=== PATIENT | male | born 1960 | race Two or more races ===

== ENCOUNTER 2022-02-25 14:48 | Outpatient (CLI) | payer SELFPAY ==
[2022-02-25 17:25] LABS: Albumin* 4.5 g/dL (3.3-5.0); Chloride* 103 mmol/L (96-114); Potassium* 4.4 mmol/L (3.6-5.1); Sodium* 136 mmol/L (135-149)
[2022-02-25 17:27] LABS: Bilirubin Total* 0.4 mg/dL (0.1-1.5); Carbon Dioxide* 23 mmol/L (20-32); Cholesterol* 217 mg/dL (90-199); Creatinine* 0.7 mg/dL (0.5-1.5); Estimated Glomerular Filt Rate 106 ml/min; Total Protein* 8.1 g/dL (6.0-8.3)
[2022-02-25 17:28] LABS: Alanine Aminotransferase* 24 U/L (4-50); Alkaline Phosphatase* 103 U/L (40-150); Aspartate Amino Transferase* 21 U/L (12-35); Blood Urea Nitrogen* 18 mg/dL (7-30); Calcium* 8.4 mg/dL (8.4-10.6); Glucose* 106 mg/dL (60-115); HDL Cholesterol* 46 mg/dL (>=40)
[2022-02-25 17:40] LABS: LDL Cholesterol Calculated 56 mg/dL (<100); Triglycerides* 577 mg/dL (40-149)
[2022-02-25 17:52] LABS: Creatinine Urine 98.9 mg/dL
[2022-02-25 19:43] LABS: Hemoglobin A1C* 6.79 % (0-5.6)
[2022-02-25 19:51] LABS: Microalbumin Creatinine Ratio 710 mg/g (0-30); Microalbumin Urine 71 mg/dL
== END 2022-02-25 14:49 | disposition home or self-care (01) ==
LOC: LAB 15:01
PROVIDERS: PCP Family Medicine; Visit Provider Family Medicine
DX: E11.9 Type 2 diabetes mellitus without complications (principal)
CPT/HCPCS: 36415; 80053; 80061; 82043; 82570; 83036

== ENCOUNTER 2023-06-20 12:45 | Emergency (ER) | payer OTHER, SELFPAY ==
[2023-06-20 12:49] VITALS: BP 189/80; PULSE 103; RESP 18; TEMP 36.9; O2SAT 98; BMI 28.2
--- NOTE | 2023-06-20 12:55 | ED_ITS ---
HPI - General Adult General Chief complaint: Headache/Migraine Stated complaint: Electric charge sensation in heart Time Seen by Provider: 06/20/23 12:47 History of Present Illness HPI narrative: c/o headache and sporadic electric chest pains x 3 days 62-year-old man presenting to the emergency department concern of headache and some chest pain. The chest pain comes and goes and describes it as an electrical feeling. Might be exacerbated with movement. Not pleuritic. He is not otherwise short of breath. 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 He does not recall a specific injury. He just got to worrying that maybe it was his heart. Does not describe any palpitations. He has also developed a headache which he demonstrates as frontal and a band across his forehead as well as some neck discomfort. Initially does not want any medicine for pain. Underlying history of diabetes and hypertension also dyslipidemia. Blood sugars been reasonably controlled. Around 110 or 120 in the mornings he says; I take this to mean fasting. Related Data Home Medications Medication Instructions Recorded Confirmed hydrochlorothiazide 25 mg tablet 25 mg PO DAILY 03/05/23 Previous Rx's Medication Instructions Recorded lisinopril 20 mg tablet 20 mg PO QDAY #90 tabs 02/25/22 metformin 1,000 mg tablet,extended 1,000 mg PO QDAY #90 tabs 02/25/22 release 24hr (osmotic) simvastatin 20 mg tablet 20 mg PO QPM #90 tabs 02/28/22 cyclobenzaprine 10 mg tablet 10 mg PO .COMPLEX #10 tabs 02/13/23 Allergies Allergy/AdvReac Type Severity Reaction Status Date / Time No Known Drug Allergies Allergy Verified 02/13/23 17:38 Review of Systems Status of ROS: Reports: 6 or more systems reviewed and unremarkable except as noted in History and below [facility] Medical History Acute appendicitis (07/01/11) ?K35.80 - Unspecified acute appendicitis (ICD-10) Surgical History S/P appendectomy ?Z90.49 - Acquired absence of other specified parts of digestive tract (ICD- 10) Social History Smoking Status: Never smoker Little interest or pleasure in doing things: not at all Feeling down, depressed, or hopeless: not at all Exam Narrative: Exam Narrative: Pleasant. Does seem mildly anxious. Regularly worrying his left chest. It is sore to palpation in this area and little erythematous I think from his own rubbing of it. Eyes are injected. Cranial nerves 2-12 intact. Pupils are 3+ and equal. Appropriately reactive and accommodating. Moving all extremities without difficulty. Well-perfused peripherally. No edema. Lungs are clear. Heart is in elevated rate and regular rhythm. He is notable sore to palpation in the trapezial and periscapular musculature left greater than right. Skin otherwise is warm and dry without rash. Is not demonstrating meningeal signs beyond the headache. Const: Vital Signs, click to edit/add: Vital Signs - 24 hr 06/20/23 12:49 Temperature 98.4 F Pulse Rate [Right Pulse Oximeter] 103 H Respiratory Rate 18 Blood Pressure [Ri ght Upper Arm] 189/80 H Pulse Oximetry 98 Oxygen Delivery Me thod Room Air Documenting provider has reviewed patient's vital signs: yes Course Vital Signs Vital signs: Initial Vital Signs Temperature 98.4 F 06/20/23 12:49 Temperature Source Temporal Artery Scan 06/20/23 12:49 Pulse Rate 103 H 06/20/23 12:49 Respiratory Rate 18 06/20/23 12:49 Blood Pressure 189/80 H 06/20/23 12:49 Blood Pressure Mean 116 H 06/20/23 12:49 Blood Pressure Position Sitting 06/20/23 12:49 Pulse Oximetry 98 06/20/23 12:49 Oxygen Delivery Method Room Air 06/20/23 12:49 Vital Signs Temperature 98.4 F 06/20/23 12:49 Pulse Rate 103 H 06/20/23 12:49 Respiratory Rate 18 06/20/23 12:49 Blood Pressure 189/80 H 06/20/23 12:49 Pulse Oximetry 98 06/20/23 12:49 Oxygen Delivery Method Room Air 06/20/23 12:49 Temperature 98.4 F 06/20/23 12:49 Pulse Rate 103 H 06/20/23 12:49 Respiratory Rate 18 06/20/23 12:49 Blood Pressure 189/80 H 06/20/23 12:49 Pulse Oximetry 98 06/20/23 12:49 Oxygen Delivery Method Room Air 06/20/23 12:49 Medications Administered Medications: Discontinued Medications Generic Name Dose Route Start Last Admin Trade Name Leela PRN Reason Stop Dose Admin Sodium Chloride 1,000 mls @ 1,000 mls/hr 06/20/23 13:28 06/20/23 13:57 0.9 % Sodium Chloride 1000 Ml IV 06/20/23 14:27 Infused .Q1H ONE Infusion Ketorolac Tromethamine 30 mg 06/20/23 13:45 06/20/23 13:58 Ketorolac 30 Mg/Ml Inj IVP 06/20/23 13:46 30 mg ONCE ONE Administration Medical Decision Making MDM Narrative Medical decision making narrative: I think it is unlikely that there is ischemic cardiovascular event however underlying history of diabetes I think it would be a good idea to check little further. I think has developed a a tension headache. I do not think this is infectious or with any evidence of meningitis. We discuss workup for his heart. Puzzling chest symptoms. Not exactly positional nor clearly reproducible. He would like to proceed with workup for potential ischemic cardiovascular event. Initially declining treatment for his headache. Labs are wholly normal. No event on vehicle monitor technician. EKG reassuring as below He would then like treatment for his headache. Following L normal saline and ketorolac IV was feeling markedly improved and requesting departure. See patient discharge plan Lab Data Lab results reviewed: Yes I reviewed the patient's lab results Labs: Lab Results 06/20/23 Range/Units 13:15 WBC 8.91 (4.50-11.00) K/uL RBC 4.91 (4.30-5.90) m/uL Hgb 15.6 (13.5-17.5) gm/dL Hct 46.2 (37.0-53.0) % MCV 94 (80-100) fL MCH 32 (26-34) pg MCHC 34 (32-36) gm/dL RDW Coeff of Evan 12.4 (11.5-15.5) % Plt Count 370 (140-440) K/uL Neut % (Auto) 66.8 (42.0-72.0) % Lymph % (Auto) 19.9 L (20-44) % Forrest % (Auto) 9.5 (0.0-11.0) % Eos % (Auto) 3.1 (0.0-7.0) % Baso % (Auto) 0.6 (0.0-3.0) % Neut # (Auto) 5.95 (1.7-7.0) K/uL Lymph # (Auto) 1.80 (0.90-2.90) K/uL Forrest # (Auto) 0.80 (0.00-0.90) K/UL Eos # (Auto) 0.28 (0.00-0.50) K/uL Baso # (Auto) 0.05 (0.00-0.30) K/uL Abs Immat Gran (auto) 0.01 (0.00-0.30) K/uL Imm/Tot Granulo (auto) 0.1 % Sodium 136 (135-149) mmol/L Potassium 3.9 (3.6-5.1) mmol/L Chloride 101 (96-114) mmol/L Carbon Dioxide 22 (20-32) mmol/L Anion Gap 13 (7-15) mEq/L BUN 27 (7-30) mg/dL Creatinine 0.8 (0.5-1.5) mg/dL Estimated Creat Clear 91.81 Estimated GFR 101 ml/min Glucose 108 (60-115) mg/dL Calcium 8.8 (8.4-10.6) mg/dL Troponin I < 0.01 L (0.01-0.04) ng/mL C-Reactive Protein 0.8 (0.5-1.0) mg/dL NT-Pro-B Natriuret Pep < 20 pg/mL Ethyl Alcohol < 0.01 L (0.01-0.03) % ECG Data Attestation: I personally reviewed and interpreted this ECG as follows: (Normal sinus rhythm. No acute ischemic changes appreciated. Rate of 91.) Discharge Plan Discharge Clinical Impression: Tension headache, Atypical chest pain, Diabetes mellitus type 2, controlled Patient Disposition: Home w/ Parent or Adult Condition: Improved Additional Instructions: Stay well hydrated with water. Consider regular pulldown stretching of your neck as demonstrated throughout the day. Little deeper each time. See also handout for daily exercises for the upper back. Return for increased and persistent shortness of breath, worsening persistent chest pain, uncontrolled headache. For your chest discomfort might try up to 500 mg naproxen 2 times daily over the next 5 days, maybe with a little food. Mantente andrew hidratado con agua. Considere la posibilidad de estirar el macario con regularidad eduardo se kelly demostrado a lo татьяна del d?a. Un poco m?s profundo cada vez. Consulte tambi?n el folleto para los ejercicios diarios para la parte superior de la espalda. Regresa por dificultad respiratoria aumentada y persistente, empeoramiento del dolor tor?cico persistente, dolor de jack incontrolable. Para alexander malestar en el pecho, puede probar hasta 500 mg de naproxeno 2 veces al d?a raghu los pr?ximos 5 d?as, fouzia vez con un poco de comida. Activity Level: No Restrictions Discharge Diet: Regular Prescriptions: No Action lisinopril 20 mg tablet 20 mg PO QDAY Qty: 90 3RF metformin 1,000 mg tablet extended release 24hr 1,000 mg PO QDAY Qty: 90 3RF cyclobenzaprine 10 mg tablet 10 mg PO .COMPLEX Qty: 10 0RF Rx Instructions: 10 mg orally 1 po at hs; simvastatin 20 mg tablet 20 mg PO QPM Qty: 90 3RF hydrochlorothiazide 25 mg tablet 25 mg PO DAILY Follow Up/Referrals: Raphael Ambriz MD [Primary Care Provider] - Stand Alone Forms: [facility] Info Instructions
[2023-06-20 13:40] LABS: Basophils Absolute Auto 0.05 K/uL (0.00-0.30); Basophils Percent Auto 0.6 % (0.0-3.0); Eosinophils Absolute Auto 0.28 K/uL (0.00-0.50); Eosinophils Percent Auto 3.1 % (0.0-7.0); Hematocrit 46.2 % (37.0-53.0); Hemoglobin* 15.6 gm/dL (13.5-17.5); Immature Granulocytes Abs Auto 0.01 K/uL (0.00-0.30); Immature Granulocytes Pct Auto 0.1 %; Lymphocytes Percent Auto 19.9 % (20-44); Mean Corpuscular HGB Conc 34 gm/dL (32-36); Mean Corpuscular Hemoglobin 32 pg (26-34); Mean Corpuscular Volume 94 fL (80-100); Monocytes Percent Auto 9.5 % (0.0-11.0); Neutrophils Absolute Auto 5.95 K/uL (1.7-7.0); Neutrophils Percent Auto 66.8 % (42.0-72.0); Platelet Count* 370 K/uL (140-440); RDW Coefficient of Variation % 12.4 % (11.5-15.5); Red Blood Count 4.91 m/uL (4.30-5.90); White Blood Count* 8.91 K/uL (4.50-11.00)
[2023-06-20 13:42] LABS: Slide Review Reflex No
[2023-06-20] MEDS: 0.9 % SODIUM CHLORIDE 1000 ml 1,000 ML IV (13:43)
[2023-06-20 13:52] LABS: Chloride* 101 mmol/L (96-114); Sodium* 136 mmol/L (135-149)
[2023-06-20 13:53] LABS: Potassium* 3.9 mmol/L (3.6-5.1)
[2023-06-20 13:55] LABS: Creatinine* 0.8 mg/dL (0.5-1.5); Est. Creatinine Clearance* 91.81; Estimated Glomerular Filt Rate 101 ml/min
[2023-06-20 13:56] LABS: Anion Gap 13 mEq/L (7-15); Blood Urea Nitrogen* 27 mg/dL (7-30); Carbon Dioxide* 22 mmol/L (20-32); Ethanol* < 0.01 % (0.01-0.03); Glucose* 108 mg/dL (60-115)
[2023-06-20 13:57] LABS: Calcium* 8.8 mg/dL (8.4-10.6)
[2023-06-20] MEDS: KETOROLAC 30 MG/ML inj IVP (13:58)
[2023-06-20 13:59] LABS: C Reactive Protein* 0.8 mg/dL (0.5-1.0)
[2023-06-20 14:09] LABS: NT Pro B Type NatriureticPept* < 20 pg/mL; Troponin I* < 0.01 ng/mL (0.01-0.04)
== END 2023-06-20 15:41 | disposition home or self-care (01) ==
PROVIDERS: Emergency Provider Family Medicine; PCP Family Medicine
DX: G44.209 Tension-type headache, unspecified, not intractable (principal); R07.89 Other chest pain; E11.9 Type 2 diabetes mellitus without complications
CPT/HCPCS: 36415; 80048; 82077; 83880; 84484; 85025; 86140; 93005; 96374; 99284; J1885; J7030

== ENCOUNTER 2024-04-02 16:55 | Outpatient (CLI) | payer OTHER, SELFPAY | END 2024-04-02 16:56 | disposition home or self-care (01) | LOC: NFLDUCREF 16:56 | PROVIDERS: PCP Family Medicine; Visit Provider Nurse Practitioner | DX: R35.0 Frequency of micturition (principal) | CPT/HCPCS: 87086 ==

== ENCOUNTER 2024-11-05 20:37 | Emergency (ER) | payer OTHER, SELFPAY ==
[2024-11-05] VITALS (12 sets, daily range): BP systolic 105–139; BP diastolic 69–89; PULSE 71–105; RESP 16–23; TEMP 36.9–37.1; O2SAT 95–97; BMI 29.5
--- OUTSIDE RECORDS SUMMARY | 2024-11-05 20:40 | XMS_ITS | Clinical Summary ---
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 0 08/20/19 20 Active blood-glucose meterIndications: Uncontrolled type 2 diabetes mellitus with hyperglycemia (HC) Dispense meter, test strips, lancets covered by pt ins. E11.65 NIDDM type II, uncontrolled - Test 3 times/day, Reason: High A1C 1 Device 10/05/19 20 Active Needle, Disp, 30 G 30 gauge x 1/2 ndleIndications:U ncontrolled type 2 diabetes mellitus with hyperglycemia (HC) As directed. Use to inject Lantus once daily 100 Each 3 11/08/19 20 Active lancetsIndication s:Controlled type 2 diabetes mellitus without complication, without long-term current use of insulin (HC) Test 3 times per day. 300 Each 3 02/25/20 20 Active hyoscyamine (LEVSIN) 0.125 mg tabletIndications :Acute diarrhea Take 1 tablet by mouth every 4 hours if needed (loose stools/diarrhea) . 30 tablet 06/19/19 21 Active atorvastatin (LIPITOR) 10 mg tabletIndications :Uncontrolled type 2 diabetes mellitus with hyperglycemia (HC) TAKE 1 TABLET BY MOUTH EVERYDAY AT BEDTIME 90 Tablet 01/19/20 21 Active Accu-Chek Guide test strips stripIndications: Uncontrolled type 2 diabetes mellitus with hyperglycemia (HC) TEST 3 TIMES PER DAY. 300 Each 2 03/19/20 21 Active lisinopriL (PRINIVIL; ZESTRIL) 20 mg tabletIndications :Hypertension, unspecified type TAKE 1 TABLET BY MOUTH EVERY DAY 30 Tablet 04/20/20 21 Active metFORMIN (GLUCOPHAGE) 1,000 mg tabletIndications :Controlled type 2 diabetes mellitus without complication, without long-term current use of insulin (HC) TAKE 1 TABLET BY MOUTH TWICE A DAY WITH MEALS 60 Tablet 04/20/20 21 Active Active Problems Problem Noted Date Diagnosed Date Controlled type 2 diabetes m ellitus without complication, without long-term current use of insulin 02/25/2020 Hypertensive disease 02/25/2020 Insomnia 02/28/2015 Hypertension 02/22/2015 Adenomatous colon polyp 10/26/2013 Overview (02/26/2019): Colonoscopy 10/2013 polyps repeat in 5 years Colonoscopy 02/2019 normal, repeat in 5 years Groin pain 10/05/2010 Resolved Problems Problem Noted Date Diagnosed Date Resolved Date Ischemic chest pain 02/22/2015 03/22/20 16 Cellulitis and abscess of unspecified site 12/16/2009 07/09/2013 Immunizations Immunization Administration Dates Next Due AMB Influenza, IIV3 (Age >=3 years)(Flu Clinic Only) 05/12/2013,04/11/2011 AMB Influenza, IIV4 PF (=>6 mos Flulaval,Fluzone Fluarix)(Flu Clinic Only) 03/04/2014 Influenza A (H1N1), Inactivated 06/14/2009 Influenza A (H1N1), Inactiva nella (Age >=3 Years) 06/14/2009 Influenza, IIV3 (Age 6-35 mos) 04/11/2011,2008 Influenza, IIV3 (Age >=3 years) 05/12/2013,05/30,05/17/2009 Influenza, IIV4 02/25/2020, 0,04/10/2018,03/22,03/04/2014 MENINGOCOCCAL VACCINE 2 VIAL 2MO-55YO (MENVEO) 03/26/2012 Tdap 02/22/2010 Zoster (Shingrix-RZV, recombinant) 08/20/2019 Family History Medical History Relation Name Comments Diabetes Mother Relation Name Status Comments Father (Age 65) Work accid ent Mother (Age 75) Old age Social History Tobacco Use Types Packs/Day Years Used Date Smoking Tobacco: Former Cigarettes 0.5 15 1 989 - 06/09/2003 Smokeless Tobacco: Never Tobacco Cessation:Counseling Given: Yes Alcohol Use Standard Drinks/Week Comments Not Currently 0 (1 standard drink = 0.6 oz pur e alcohol) PHQ-2 Answer Date Recorded PHQ-2 TOTAL SCORE 1 10/08/2019 Social Connections Answer Date Recorded Frequency of Communication with Friends and Fami ly Not on file 06/09/2021 Financial Resource Strain Answer Date R ecorded Difficulty of Paying Living Expenses Not on file 06/09/2021 Difficulty of Paying Living Expenses Not on file 06/09/2021 Sex and Gender Information Value Date Recorded Sex Assigned at Not on file Legal Sex Male 7:27 AM [employer]ASSEL [employer] Gender Identity Not on file Sexual Orientation Not on file Obstetrics History Last Filed Vital Signs Vital Sign Reading Time Taken Comments Blood Pressure 126/80 01/05/2021 3:48 PM CDT Pulse 89 01/05/2021 3:48 PM CDT Temperature 36.7 C (98.1 F) 06/19/2020 1:15 PM TASSEL MAKER Respiratory Rate 20 06/19/2020 1:15 PM TASSEL MAKER Oxygen Saturation 100% 06/19/2020 1:15 PM TASSEL MAKER Inhaled Oxygen Concentration - - Weight 77.5 kg (170 lb 14.4 oz) 01/05/2021 3:48 PM CDT Height 168 cm (5' 6.14) 02/25/2020 2:44 PM CDT Body Mass Index 27.47 02/25/2020 2:44 PM CDT Plan of Treatment Health Maintenance Due Date Last Done Comments Depression screening for age 12+ 1974 HIV for age 15-65 1977 Pneumococcal series for age 50+ (1 of 1 - PCV) 2012 Zoster (shingles) series for age 50+ (2 of 2) 10/15/2019 08/20/2019 Tetanus booster 02/23/2020 02/22/2010 BMI (ht and wt on same day) for age 18+ 02/24/2021 02/25/2020, 08/20/2019, 10/02/2018, Additional history exists COVID-19 vaccine series ( season) 2024 11/18/2020, 10/21/2020 Colonoscopy through age 75 02/27/202402/26, 02/26/2019, 02/26/2019, Additional history exists Lipids for age 45-75 10/03/2024 10/04/2019 Influenza Vaccine (Season Ended) 2025 02/25/2020, 08/20/2019, 04/10/2018, Additional history exists RSV vaccine for adults or (1 - 1-dose 75+ series) 2037 Tdap Completed 02/22/2010 Hepatitis C screening for age 18-79 Completed 01/05/2021 Hepatitis B series for 19+ Aged Out N o longer eligible based on patient's age to complete this topic Procedures Procedure Name Priority Date/Time Associated Diagnosis Comments ANTI HCV Add On 01/05/2021 3:41 PM CDT Need for hepatitis C screening test LIPID PANEL W REFLEX MEASURED LDL Routine 10/04/2019 4:10 PM CDT Lipid screening COLONOSCOPY 02/26/2019 8:38 AM CDT from Last 3 Months or Most Recently Relevant to Health Maintenance Results * ANTI HCV (01/05/2021 3:41 PM CDT) Pathologist [facility] HEPATITIS C ANTIBODY Non-React praveena Non-React praveena 01/05/2021 8:22 PM CDT [facility] [employer] [place] [facility] Comment:Antibodies to HCV no t detected; does not exclude the possibility of exposure to HCV. Blood BLOOD SPECIMEN / Unknown Venipuncture / Unknown 01/05/2021 3:41 PM CDT 01/05/2021 3:42 PM CDT us Mary Templeton DO SEND OUTS Final Resul t [facility] [address] [place] [address], [place] * (ABNORMAL) LIPID PANEL W REFLEX MEASURED LDL (10/04/2019 4:10 PM CDT) CHOLESTEROL,TOTAL 238(H) 100 - 199 mg/dL 10/04/2019 7:47 PM CDT [facility] TRIGLYCERIDES 300(H) <150 mg/dL 10/04/2019 7:47 PM CDT [facility] HDL CHOLESTEROL 51 >40 mg/dL 0 7:47 PM CDT [facility] NON-HDL CHOLESTEROL 187(H) <145 mg/dl 10/04/2019 7:47 PM CDT [facility] CHOL/HDL RATIO 4.67(H) <4.50 10/04/2019 7:47 PM CDT [facility] LDL CHOLESTEROL 127 <=130 mg/dL 10/04/2019 7:47 PM CDT [facility] PROVIDER ORDERED STATUS RANDOM 10/04/2019 7:47 PM CDT [facility] Blood BLOOD SPECIMEN / Unknown Venipuncture / Unknown 10/04/2019 4:10 PM CDT 10/04/2019 4:11 PM CDT us Rosa Jamison MD CHEMISTRY Final Resul t [facility] [address] [place] [address], [place] * COLONOSCOPY (02/26/2019 8:38 AM CDT) 02/26/2019 8:38 AM CDT Narrative Transcriptions Uday Montaño MD - 02/26/2019 9:36 AM CDT Patient Name: Telly Ross Procedure Date: 02/26/2019 Gender: Male Date of : 1960 Admit Type: Outpatient Procedure: Colonoscopy Proceduralist: Uday Montaño MD , Daysi Chavez (Nurse) Indications/Pre-Op Diagnosis: Surveillance: Personal history ofadenomatous polyps on last colonoscopy 5 years ago Medications: Fentanyl 100 micrograms IV, Midazolam 2 mgIV, The level of sedation administered wasmoderate Procedure Description: The patient had risks, benefits and alternatives explained to andgave informed consent. The patient had a stable cardiopulmonary status and judged an adequate candidate for conscious sedation. The [id number] was passed through the anus and advanced tothe cecum, identified by appendiceal orifice and ileocecal valve. The colonoscopy was performed without difficulty. The patient toleratedthe procedure well. The quality of the bowel preparation was good. The ileocecal valve, appendiceal orifice, and rectum were photographed. Complications: No immediate complications. Estimated Blood Loss & Specimen: Estimated blood loss: none. Specimen collected - None Findings: The perianal and digital rectal examinations were normal. The entire examined colon appeared normal on direct and retroflexion views. Impressions/Post-Op Diagnosis: - The entire examined colon is normal on direct and retroflexionviews. - No specimens collected. Recommendation: - Patient has a contact number available for emergencies. The signsand symptoms of potential delayed complications were discussed with the patient. Return to normal activities tomorrow. Written discharge instructions were provided to the patient. - Resume previous diet. - Continue present medications. - Repeat colonoscopy in 5 years for surveillance. Moderate Sedation: Moderate (conscious) sedation was administered by the endoscopy nurse and supervised by the endoscopist. The following parameters were monitored: oxygen saturation, heart rate, respiratory rate, blood pressure, adequacy of pulmonary ventilation and reponse to care. [facility] flow[facility]ets and nursing notes for moderate sedation details. Total physician intraservice time was 15 minutes. Uday Montaño MD 02/26/2019 9:36:52 AM This report has been signed electronically. Note Initiated On: 02/26/2019 8:38 AM Procedure Code(s): --- Professional --- 68477, Colonoscopy, flexible; diagnostic, including collection of specimen(s) bybrushing or washing, when performed (separateprocedure) Diagnosis Code(s): --- Professional --- Z86.010, Personal history of colonicpolyps CPT copyright 2018 [employer]. All rights reserved. The codes documented in this report are preliminary and upon railroad brake operator reviewmay be revised to meet current compliance requirements. Scope In: 9:22:04 AM Scope Withdrawal Time 0 hours 8 minutes 55 seconds Scope Out: 9:34:06 AM us Uday Montaño MD PROCEDURE ORD Final Res ult from Last 3 Months or Most Recently Relevant to Health Maintenance Advance Directives * Full Code (Latest Code Status on File) Date Activated Date Inactivated Comments 02/21/2015 9:48 PM 02/22/2015 5:10 PM Question Answer Comments Code Status Discussion: Discussed Care Teams [employer] Gl[employer]ier Relationship Specialty Start Date End Date Pcp, No . PCP - General 05/03/21
--- NOTE | 2024-11-05 21:04 | CRLHL7_ITS ---
For Patients: As a result of the Cures Act, medical imaging exams and procedure reports are released immediately into your electronic medical record. You may view this report before your referring provider. If you have questions, please contact your health care provider. Indication: Chest pain. Technique: Two views of the chest. Comparison: None. Findings/Impression: The heart is not abnormally enlarged. Mediastinal contours are grossly within normal limits. Moderate left-sided pleural effusion. Left-sided mid to lower lung zone peripheral opacification may reflect infectious/inflammatory process with underlying neoplasm not definitively excluded. Further characterization with CT chest recommended. No pneumothorax. No acute osseous abnormality. Dictated by Michele Cunningham MD @ 11/05/2024 10:53:06 PM (Electronically Signed)
--- NOTE | 2024-11-05 21:21 | ED_ITS ---
HPI - Chest Pain General Date Seen: 11/05/24 Chief Complaint: Chest Pain Stated Complaint: sever left chest pain Time Seen by Provider: 11/05/24 20:51 Source: patient, family and RN notes reviewed Mode of arrival: ambulatory Limitations: no limitations History of Present Illness HPI narrative: 64-year-old gentleman who presents here with family, he has had a month long history of left-sided chest discomfort when he moves around walks and does other things but in the last 24 hours he has noted pain on the left side of his chest, when he coughs. Denies any hemoptysis with this, any syncopal episodes no leg swelling, no history of any pulmonary embolism or DVT, here with family, does not speak any Thai but they are interpreting for him, has not had any fevers chills or sweats, but has had a cough also for a month's time. Feels a little bit more fatigued. No history of rashes, no nausea vomiting and drinking normally with no history of any weight loss. No previous history of any heart problems but does have a history of diabetes and also hypertension, along with hyperlipidemia. Family think that there was a person with heart disease before age 55. After for his 1 month history of chest pain he does not have any history of any pain at missed any work, he is able to walk around he denies any shortness of breath with this. Risk Factors Coronary artery disease risk factors: diabetes, hyperlipidemia, hypertension and family history of CAD before age 50 Thoracic aortic dissection risk factors: none Related Data Home Medications ?Medication ?Instructions ?Recorded ?Confirmed hydrochlorothiazide 25 mg tablet 25 mg PO DAILY 04/02/24 Previous Rx's ?Medication ?Instructions ?Recorded lisinopril 20 mg tablet 20 mg PO QDAY #90 tabs 02/25 metformin 1,000 mg tablet,extended 1,000 mg PO QDAY #9 0 tabs 02/25/22 release 24hr (osmotic) simvastatin 20 mg tablet 20 mg PO QPM #90 tabs Allergies Allergy/AdvReac Type Severity Reaction Status Date / Time No Known Drug Allergies Allergy Verified 11/05/24 22:24 Review of Systems Status of ROS Reports: 10 or more systems reviewed and unremarkable except as noted in History and below [facility] Medical History Acute appendicitis (07/01/11) ?K35.80 - Unspecified acute appendicitis (ICD-10) Surgical History S/P appendectomy ?Z90.49 - Acquired absence of other specified parts of digestive tract (ICD- 10) Social History Smoking Status: Never smoker How often do you have a drink containing alcohol: never AUDIT-C Alcohol total score: 0 Non-prescribed substance use: denies use Exam Narrative Exam Narrative: On examination in room 1 he is in no apparent distress speaking to me normally, vital signs are listed in normal pupils equal round reactive to light there is no scleral icterus redness is TMs normal oropharynx normal neck is supple chest is good air entry bilaterally no wheezing crackles noted his heart sounds normal clicks murmurs or gallops his abdomen is soft there is no guarding no organomegaly bowel sounds are normal, moves all extremities independently and well, no evidence of any swelling of the lower extremities, pulses are all with all extremities independently well. Const Vital Signs, click to edit/add: Vital Signs - 24 hr 11/05/24 20:55 11/05/24 21:03 11/05/24 21:04 Temperature 98.7 F 98.7 F Pulse Rate Pulse Rate [Pulse Oximeter] 71 99 Respiratory Rate 16 18 Blood Pressure Blood Pressure [Right Upper Arm] 111/73 113/70 Pulse Oximetry 96 96 96 Oxygen Delivery Method Room Air Room Air 11/05/24 21:11 11/05/24 21:22 11/05/24 21:31 Temperature Pulse Rate 105 H 100 102 H Pulse Rate [Pulse Oximeter] Respiratory Rate 18 20 20 Blood Pressure 130/77 136/83 129/80 Blood Pressure [Right Upper Arm] Pulse Oximetry 96 95 95 Oxygen Delivery Method 11/05/24 22:25 11/05/24 22:27 11/05/24 22:28 Temperature 98.7 F 98.7 F Pulse Rate 99 Pulse Rate [Pulse Oximeter] Respiratory Rate 18 Blood Pressure 139/89 Blood Pressure [Right Upper Arm] Pulse Oximetry 97 Oxygen Delivery Method 11/05/24 22:32 11/05/24 23:02 11/05/24 23:44 Temperature 98.4 F 98.4 F Pulse Rate 96 89 Pulse Rate [Pulse Oximeter] Respiratory Rate 20 23 Blood Pressure 135/80 105/69 Blood Pressure [Right Upper Arm] Pulse Oximetry 96 97 Oxygen Delivery Method 11/06/24 00:12 Temperature 98.4 F Pulse Rate Pulse Rate [Pulse Oximeter] Respiratory Rate Blood Pressure Blood Pressure [Right Upper Arm] Pulse Oximetry Oxygen Delivery Method Documenting provider has reviewed patient's vital signs: yes Course Course ED Course: I would back and discussed with him he has evidence of pneumonia on the left side with a pleural effusion. As this is community-acquired, I think he needs a dual agent. Augmentin along with Zithromax would be indicated. Follow-up x-ray would also be indicated, they doctor through [facility]. A follow-up x-ray should be done. I also think he should be off work, if he has worsening chest pain shortness of breath or other issues she should come back, his vital signs were good, and I do not think he needs admission based on the fact that he is not hypoxic he does not have excruciating pain or other issues. We did go over in detail when he should come back and be seen, I wrote him a note for work. Vital Signs Vital signs: Initial Vital Signs Temperature 98.7 F 11/05/24 20:55 Temperature Source Temporal Artery Scan 11/05/24 20:55 Pulse Rate 71 11/05/24 20:55 Respiratory Rate 16 11/05/24 20:55 Blood Pressure 111/73 11/05/24 20:55 Blood Pressure Mean 85 11/05/24 20:55 Blood Pressure Position Sitting 11/05/24 20:55 Pulse Oximetry 96 11/05/24 20:55 Oxygen Delivery Method Room Air 11/05/24 20:55 Vital Signs Temperature 98.7 F 11/05/24 20:55 Pulse Rate 71 11/05/24 20:55 Respiratory Rate 16 11/05/24 20:55 Blood Pressure 111/73 11/05/24 20:55 Pulse Oximetry 96 11/05/24 20:55 Oxygen Delivery Method Room Air 11/05/24 20:55 Temperature 98.4 F 11/06/24 00:12 Pulse Rate 89 11/05/24 23:02 Respiratory Rate 23 11/05/24 23:02 Blood Pressure 105/69 11/05/24 23:02 Pulse Oximetry 97 11/05/24 23:02 Oxygen Delivery Method Room Air 11/05/24 21:04 Medications Administered Medications: Discontinued Medications Generic Name Dose Route Start Last Admin Trade Name Leela PRN Reason Stop Dose Admin Acetaminophen 1,000 mg 11/05/24 22:24 11/05/24 22:28 Acetaminophen 500 Mg Tablet PO 11/05/24 22:25 1,000 mg ONCE ONE Administration Ketorolac Tromethamine 15 mg 11/05/24 22:24 11/05/24 22:27 Ketorolac 15 Mg/Ml Inj IVP 11/05/24 22:25 15 mg ONCE ONE Administration MDM - Chest Pain MDM Narrative Medical decision making narrative: During the evaluation of this patient I considered multiple differential diagnosis is. The life-threatening differential diagnosis include coronary disease/ME, pulmonary embolism, pneumothorax, pneumonia, and aortic dissection. Other differential diagnosis included but were not limited to pericarditis, myocarditis, chest wall pain, GERD, esophageal rupture, rib fracture contusion, pleurisy, as well as other etiologies. Medical Records Data Attestation: I reviewed the patient's medical records. Lab Data Attestation: I reviewed the patient's lab results. Lab results narrative: Elevated white count, D-dimer was elevated thus we read did this chest CT, electrolytes were normal with exception of elevated glucose troponin x2 was normal. Labs: Lab Results 11/05/24 11/05/24 11/05/24 Range/Units 21:10 21:15 23:25 WBC 11.50 H (4.50-11.00) K/uL RBC 4.40 (4.30-5.90) m/uL Hgb 13.7 (13.5-17.5) gm/dL Hct 40.9 (37.0-53.0) % MCV 93 (80-100) fL MCH 31 (26-34) pg MCHC 34 (32-36) gm/dL RDW Coeff of Evan 12.3 (11.5-15.5) % Plt Count 450 H (140-440) K/uL Neut % (Auto) 71.4 (42.0-72.0) % Lymph % (Auto) 14.2 L (20-44) % Rapides % (Auto) 8.3 (0.0-11.0) % Eos % (Auto) 5.4 (0.0-7.0) % Baso % (Auto) 0.5 (0.0-3.0) % Neut # (Auto) 8.20 H (1.7-7.0) K/uL Lymph # (Auto) 1.60 (0.90-2.90) K/uL Rapides # (Auto) 1.00 H (0.00-0.90) K/UL Eos # (Auto) 0.60 H (0.00-0.50) K/uL Baso # (Auto) 0.10 (0.00-0.30) K/uL Abs Immat Gran (auto) 0.00 (0.00-0.30) K/uL Imm/Tot Granulo (auto) 0.2 % INR 1.00 (0.91-1.10) APTT 29 (23-33) Seconds D-Dimer Quant (PE/DVT) 1.87 H (0.00-0.50) ug/ml Sodium 134 L (135-149) mmol/L Potassium 3.6 (3.6-5.1) mmol/L Chloride 101 (96-114) mmol/L Carbon Dioxide 22 (20-32) mmol/L Anion Gap 11 (7-15) mEq/L BUN 22 (7-30) mg/dL Creatinine 0.9 (0.5-1.5) mg/dL Estimated Creat Clear 64.13 Estimated GFR 97 ml/min Glucose 210 H (60-115) mg/dL Calcium 8.9 (8.4-10.6) mg/dL NT-Pro-B Natriuret Pep 64 (See Note) pg/mL SARS-CoV-2 (PCR) Negative SARS-CoV-2 (Negative) Influenza Type A (PCR) Negative PCR FLU A (Negative) Influenza Type B (PCR) Negative PCR FLU B (Negative) RSV (PCR) Negative PCR RSV (Negative) POC Troponin I 0.01 0.00 L (0.01-0.04) ng/ml Imaging Data Chest x-ray: Attestation: I have reviewed the pertinent imaging results. My impression: There was evidence of left-sided pleural effusion, CT was ordered. Radiologist's impression: [address] [address] Diagnostic Imaging Report Patient: Telly Weaver MR#: [id number] : 1960 Acct:[id number] Loc: ED Service Date: 11/05/[address]: Ordering Physician: Dov Clemons M.D. Date of Service: 11/05/24 Procedure(s): CT angio chest PE protocol Accession Number(s): [id number] cc: Provider,Not a Local; Dov Clemons M.D.~ For Patients: As a result of the Cures Act, medical imaging exams and procedure reports are released immediately into your electronic medical record. You may view this report before your referring provider. If you have questions, please contact your health care provider. INDICATION: Shortness of breath, left-sided chest pain. TECHNIQUE: CTA chest PE was acquired with 95 cc Isovue 370 IV contrast. Coronal and sagittal MIP reconstructions were performed. COMPARISON: Chest radiographs 11/05/2024. FINDINGS: Heart and vasculature: Contrast opacification of the pulmonary arterial tree is adequate. No sign of pulmonary embolism. Heart size is normal. Thoracic aorta and pulmonary artery are normal in caliber. Lungs and pleura: Small to moderate left pleural effusion. Adjacent left lower lobe compressive atelectasis. Focal consolidation in the left lower lobe superior segment. Few calcified granulomas. No pneumothorax. Lymph nodes/mediastinum: Mildly prominent left hilar lymph nodes. Thyroid gland is unremarkable. Chest wall: No masses. Upper abdomen: No acute findings. Bones: Degenerative changes. IMPRESSION: 1. No evidence of pulmonary embolism. 2. Left lower lobe focal consolidation, likely representing pneumonia. Recommend follow-up to resolution to exclude underlying lesion. 3. Small to moderate left pleural effusion. 4. Mildly prominent left hilar lymph nodes, likely reactive. Please note that all CT scans at this facility use dose modulation, iterative reconstruction, and/or weight-based dosing when appropriate to reduce radiation dose to as low as reasonably achievable. Dictated by Familia Leary MD @ 11/05/2024 11:37:31 PM (Electronically Signed) ECG Data Attestation: I personally reviewed and interpreted this ECG as follows: Prior ECG tracings: available for review Interpretation: EKG shows some mild that tachycardia 1 await, no acute ST wave changes suggestive of ischemia. There is some Q-waves inferiorly, possible old inferior ME. Abnormal EKG, as above, compared to old EKG from 2012 is been no appreciable change. Discharge Plan Discharge Clinical Impression: Pneumonia, Diabetes mellitus, type II Patient Disposition: Home w/ Parent or Adult Instructions: Community Acquired Pneumonia (DC) Additional Instructions: Home, rest, medications as directed, I would use Tylenol ibuprofen for the discomfort, if you get increasing fevers, shortness of breath, they need to come back and be seen here. Otherwise follow-up in 4 weeks with [facility], you will need to follow-up chest x-ray to exclude any problems. Off work for the next 5 days. Rx given for Augmentin 875 mg p.o. b.i.d. for 14 days, Zithromax Z-Rayshawn as directed [place], reposo, medicamentos seg?n indicaciones. Yo usar?a Tylenol e ibuprofeno para las molestias. Si presenta fiebre creciente o dificultad para respirar, debe regresar para ser atendido aqu?. De lo contrario, carmenza un seguimiento en 4 semanas con [facility]. Necesitar? bharath radiograf?a de t?rax de seguimiento para descartar cualquier problema. No trabajar? raghu los pr?ximos 5 d?as. Se le recetaron 875 mg de Augmentin por v?a oral dos veces al d?a raghu 14 d?as, y Zithromax Z-Rayshawn seg?n las indicaciones. Activity Level: Light activity Discharge Diet: Diabetic Prescriptions: No Action lisinopril 20 mg tablet 20 mg PO QDAY Qty: 90 3RF metformin 1,000 mg tablet extended release 24hr 1,000 mg PO QDAY Qty: 90 3RF simvastatin 20 mg tablet 20 mg PO QPM Qty: 90 3RF hydrochlorothiazide 25 mg tablet 25 mg PO DAILY Follow Up/Referrals: Provider,Not a Local [Primary Care Provider, Family Practice] Stand Alone Forms: Work/School Release, [facility] Info Instructions
[2024-11-05 21:23] LABS: Basophils Percent Auto 0.5 % (0.0-3.0); Eosinophils Percent Auto 5.4 % (0.0-7.0); Hematocrit 40.9 % (37.0-53.0); Hemoglobin* 13.7 gm/dL (13.5-17.5); Immature Granulocytes Pct Auto 0.2 %; Lymphocytes Percent Auto 14.2 % (20-44); Mean Corpuscular HGB Conc 34 gm/dL (32-36); Mean Corpuscular Hemoglobin 31 pg (26-34); Mean Corpuscular Volume 93 fL (80-100); Monocytes Percent Auto 8.3 % (0.0-11.0); Neutrophils Percent Auto 71.4 % (42.0-72.0); Platelet Count* 450 K/uL (140-440); RDW Coefficient of Variation % 12.3 % (11.5-15.5)
[2024-11-05 21:27] LABS: Slide Review Reflex No
[2024-11-05 21:32] LABS: Chloride* 101 mmol/L (96-114); Potassium* 3.6 mmol/L (3.6-5.1); Sodium* 134 mmol/L (135-149)
[2024-11-05 21:35] LABS: Anion Gap 11 mEq/L (7-15); Blood Urea Nitrogen* 22 mg/dL (7-30); Calcium* 8.9 mg/dL (8.4-10.6); Carbon Dioxide* 22 mmol/L (20-32); Creatinine* 0.9 mg/dL (0.5-1.5); Est. Creatinine Clearance* 64.13; Estimated Glomerular Filt Rate 97 ml/min; Glucose* 210 mg/dL (60-115)
[2024-11-05 21:48] LABS: NT Pro B Type NatriureticPept* 64 pg/mL (See Note)
[2024-11-05 21:54] LABS: Troponin, Point-of-Care* 0.01 ng/ml (0.01-0.04)
--- NOTE | 2024-11-05 21:56 | CRLHL7_ITS ---
For Patients: As a result of the Century Cures Act, medical imaging exams and procedure reports are released immediately into your electronic medical record. You may view this report before your referring provider. If you have questions, please contact your health care provider. INDICATION: Shortness of breath, left-sided chest pain. TECHNIQUE: CTA chest PE was acquired with 95 cc Isovue 370 IV contrast. Coronal and sagittal MIP reconstructions were performed. COMPARISON: Chest radiographs 11/05/2024. FINDINGS: Heart and vasculature: Contrast opacification of the pulmonary arterial tree is adequate. No sign of pulmonary embolism. Heart size is normal. Thoracic aorta and pulmonary artery are normal in caliber. Lungs and pleura: Small to moderate left pleural effusion. Adjacent left lower lobe compressive atelectasis. Focal consolidation in the left lower lobe superior segment. Few calcified granulomas. No pneumothorax. Lymph nodes/mediastinum: Mildly prominent left hilar lymph nodes. Thyroid gland is unremarkable. Chest wall: No masses. Upper abdomen: No acute findings. Bones: Degenerative changes. IMPRESSION: 1. No evidence of pulmonary embolism. 2. Left lower lobe focal consolidation, likely representing pneumonia. Recommend follow-up to resolution to exclude underlying lesion. 3. Small to moderate left pleural effusion. 4. Mildly prominent left hilar lymph nodes, likely reactive. Please note that all CT scans at this facility use dose modulation, iterative reconstruction, and/or weight-based dosing when appropriate to reduce radiation dose to as low as reasonably achievable. Dictated by Familia Leary MD @ 11/05/2024 11:37:31 PM (Electronically Signed)
[2024-11-05 22:01] LABS: D Dimer Quantitative* 1.87 ug/ml (0.00-0.50); Partial Thromboplastin Time* 29 Seconds (23-33)
[2024-11-05] MEDS: KETOROLAC 15 MG/ML inj IVP (22:27)
[2024-11-05 22:28] LABS: PCR FLU A Negative PCR FLU A (Negative); PCR FLU B Negative PCR FLU B (Negative); PCR RSV Negative PCR RSV (Negative); SARS PCR* Negative SARS-CoV-2 (Negative)
[2024-11-05] MEDS: ACETAMINOPHEN 500 MG TABLET 1000 MG PO (22:28)
[2024-11-06 00:12] VITALS: TEMP 36.9
[2024-11-06 00:27] VITALS: BP 118/74; PULSE 95; RESP 23; TEMP 36.9; O2SAT 97
== END 2024-11-06 00:28 | disposition home or self-care (01) ==
PROVIDERS: Emergency Provider Family Medicine
DX: J18.9 Pneumonia, unspecified organism (principal); E11.9 Type 2 diabetes mellitus without complications
CPT/HCPCS: 36415; 71046; 71275; 80048; 83880; 84484; 85025; 85379; 85610; 85730; 87631; 93005; 94761; 96374; 99284; 99285; A9270; J1885; Q9967

== ENCOUNTER 2024-12-21 16:45 | Outpatient (CLI) | payer OTHER, SELFPAY ==
--- NOTE | 2024-12-21 17:00 | CRLHL7_ITS ---
For Patients: As a result of the Cures Act, medical imaging exams and procedure reports are released immediately into your electronic medical record. You may view this report before your referring provider. If you have questions, please contact your health care provider. INDICATION: UNSPECIFIED BACTERIAL PNEUMONIA TECHNIQUE: Chest 2 views COMPARISON: 5 FINDINGS: Mildly decreased effusion on the left with improved aeration in the adjacent lung. Right lung clear. No pneumothorax. No pulmonary edema. No fracture. Stable mediastinal contours. IMPRESSION: Improved left sided infiltrate with decreased effusion. Dictated by Harrison Anderson MD @ 12/22/2024 9:30:26 AM (Electronically Signed)
== END 2024-12-21 16:46 | disposition home or self-care (01) ==
LOC: RAD 16:46
PROVIDERS: Visit Provider Family Medicine
DX: J15.9 Unspecified bacterial pneumonia (principal)
CPT/HCPCS: 71046